=== PATIENT | male | born 1970 | race Caucasian/White ===

== ENCOUNTER 2021-04-07 01:14 | Observation (INO) | payer OTHER ==
[2021-04-07 01:57] LABS: BASOPHILS % (AUTO) 0.2 %; EOSINOPHILS # (AUTO) 0.1 10^3/uL (0.0-0.7); EOSINOPHILS % (AUTO) 0.9 %; HCT - HEMATOCRIT 39.4 % (42.0-52.0); HGB - HEMOGLOBIN 13.7 g/dL (14.0-18.0); LYMPHOCYTES # (AUTO) 0.8 10^3/uL (1.5-3.5); LYMPHOCYTES % (AUTO) 6.4 %; MEAN CORPUSCULAR HEMOGLOBIN 34.3 pg (27.0-31.0); MEAN CORPUSCULAR HGB CONC 34.8 g/dL (32.0-36.0); MEAN CORPUSCULAR VOLUME 98.5 fL (80.0-94.0); MEAN PLATELET VOLUME 11.4 fL (7.4-11.4); MONOCYTES # (AUTO) 1.1 10^3/uL (0.0-1.0); MONOCYTES % (AUTO) 9.5 %; NEUTROPHILS # (AUTO) 9.7 10^3/uL (1.5-6.6); NEUTROPHILS % (AUTO) 82.7 %; PLT - PLATELET COUNT 148 10^3/uL (130-450); RED CELL DISTRIBUTION WIDTH 11.7 % (12.0-15.0); WHITE BLOOD COUNT 11.7 x10^3/uL (4.8-10.8)
--- NOTE | 2021-04-07 02:09 | ED Physician Documentation ---
PD HPI ABD PAIN - Stated complaint Stated Complaint: ABD CRAMPS - Chief complaint Chief Complaint: Abd Pain - History obtained from History obtained from: Patient - History of Present Illness Timing - onset: Enter time (20:00), Today Timing - details: Gradual onset, Waxing and waning Pain level now: 4 Quality: Cramping, Pain Location: All over / everywhere Radiation: Other (does not radiate) Improved by: Laying still Worsened by: Palpation Associated symptoms: No: Fever, Nausea, Vomiting, Diarrhea, Constipation Similar symptoms before: Has not had sx before Recently seen: Not recently seen - Additional information Additional information: c/o abdominal pain, described as cramping, since 8 PM. Gradual onset but steadily progressing in severity. Pain is predominantly right-sided. He denies h/o similar symptoms. Review of Systems Constitutional: denies: Fever, Chills, Sweats Cardiac: reports: Reviewed and negative Respiratory: reports: Reviewed and negative GI: reports: Abdominal Pain. denies: Abdominal Swelling, Nausea, Vomiting, Constipation, Diarrhea : denies: Dysuria, Frequency Skin: denies: Rash PD PAST MEDICAL HISTORY - Past Medical History Past Medical History: Yes Neuro: Multiple sclerosis Musculoskeletal: Other Other Past Medical History: Multiple Sclerosis - Past Surgical History Past Surgical History: Yes - Present Medications Home Medications: Ambulatory Orders Medication Instructions Recorded Confirmed Diroximel Fumarate [Vumerity] 2 cap PO DAILY 04/07/21 04/07/21 - Allergies Allergies/Adverse Reactions: Allergies Allergy/AdvReac Type Severity Reaction Status Date / Time No Known Drug Allergies Allergy Verified 04/07/21 01:44 - Living Situation Living Situation: reports: With spouse/s.o. Living Arrangement: reports: At home - Social History Does the pt smoke?: No Smoking Status: Never smoker Does the pt drink ETOH?: No Does the pt have substance abuse?: No - Immunizations Immunizations are current?: Yes - POLST Patient has POLST: No PD ED PE NORMAL - Vitals Vital signs reviewed: Yes - General General: Alert and oriented X 3, No acute distress, Well developed/nourished - HEENT HEENT: Moist mucous membranes - Neck Neck: Supple, no meningeal sign - Cardiac Cardiac: RRR, No murmur - Respiratory Respiratory: No respiratory distress, Clear bilaterally - Abdomen Abdomen: Soft, Non distended PD ED PE EXPANDED - Abdomen Abdomen: Tender to palpation, RLQ. No: Rebound, Guarding Results - Vitals Vitals: Vital Signs - 24 hr 04/07/21 04/07/21 04/07/21 01:35 03:10 03:37 Temperature 36.9 C 36.5 C 37.1 C Heart Rate 66 70 57 L Respiratory 16 16 16 Rate Blood Pressure 116/66 134/70 H 105/77 O2 Saturation 100 98 98 Oxygen O2 Source Room air - Labs Labs: Laboratory Tests 04/07/21 04/07/21 04/07/21 01:50 01:50 02:35 WBC 11.7 H RBC 4.00 L Hgb 13.7 L Hct 39.4 L MCV 98.5 H MCH 34.3 H MCHC 34.8 RDW 11.7 L Plt Count 148 MPV 11.4 Neut # (Auto) 9.7 H Lymph # (Auto) 0.8 L [facility] # (Auto) 1.1 H Eos # (Auto) 0.1 Baso # (Auto) 0.0 Absolute Nucleated RBC 0.00 Nucleated RBC % 0.0 Sodium 137 Potassium 3.5 Chloride 102 Carbon Dioxide 24 Anion Gap 11.0 BUN 25 H Creatinine 0.8 Estimated GFR (MDRD) 102 Glucose 124 H Calcium 9.4 Total Bilirubin 1.4 H AST 33 ALT 35 Alkaline Phosphatase 48 Total Protein 7.1 Albumin 4.5 Globulin 2.6 Albumin/Globulin Ratio 1.7 Lipase 20 L Urine Color YELLOW Urine Clarity CLEAR Urine pH 5.5 Ur Specific [place] >=1.030 H Urine Protein NEGATIVE Urine Glucose (UA) NEGATIVE Urine Ketones >=80 H Urine Occult Blood NEGATIVE Urine Nitrite NEGATIVE Urine Bilirubin NEGATIVE Urine Urobilinogen 0.2 (NORMAL) Ur Leukocyte Esterase NEGATIVE Ur Microscopic Review NOT INDICATED Urine Culture Comments NOT INDICATED - Rads (name of study) CT A/P with IV contrast Radiology: Prelim report reviewed, See rad report PD MEDICAL DECISION MAKING - ED course Complexity details: reviewed results, re-evaluated patient, considered differential, d/w patient ED course: c/o gradual onset abdominal pain, steadily progressive over past few hours. Exam is consistent with appendicitis this is demonstrated on CT A/P. He declines pain medications during ED stay. D/W Dr. Gavin who will admit for surgical intervention later this morning Departure - Departure Disposition: ED Transfer to [facility] Clinical Impression: Appendicitis Qualifiers: Appendicitis type: acute appendicitis Acute appendicitis type: with localized peritonitis Appendicitis gangrene presence: without gangrene Appendicitis perforation presence: without perforation Appendicitis abscess presence: without abscess Qualified Code(s): K35.30 - Acute appendicitis with localized peritonitis, without perforation or gangrene Condition: Good Discharge Date/Time: 04/07/21 04:45
[2021-04-07 02:12] LABS: ALBUMIN 4.5 g/dL (3.2-5.5); ALBUMIN/GLOBULIN RATIO 1.7 (1.0-2.2); BILIRUBIN,TOTAL 1.4 mg/dL (0.2-1.0); CALCIUM 9.4 mg/dL (8.5-10.3); CREATININE 0.8 mg/dL (0.6-1.2); POTASSIUM 3.5 mmol/L (3.5-5.0); TOTAL PROTEIN 7.1 g/dL (6.7-8.2)
[2021-04-07] MEDS ORDERED: SODIUM CHLORIDE 0.9% 1,000 ML IV STA (02:43)
[2021-04-07 02:46] LABS: BILIRUBIN,URINE NEGATIVE (NEGATIVE); GLUCOSE, URINE (UA) NEGATIVE (NEGATIVE); KETONES,URINE (UA) >=80 mg/dL (NEGATIVE); LEUKOCYTE ESTERASE, URINE NEGATIVE (NEGATIVE); NITRITE,URINE NEGATIVE (NEGATIVE); OCCULT BLOOD,URINE NEGATIVE (NEGATIVE); PH,URINE 5.5 PH (5.0-7.5); PROTEIN,URINE NEGATIVE (NEGATIVE); UROBILINOGEN,URINE 0.2 (NORMAL) E.U./dL (NORMAL)
[2021-04-07 02:53] LABS: CLARITY,URINE CLEAR (CLEAR)
[2021-04-07] MEDS ORDERED: IOVERSOL 320 100 ML VIAL IVP ONE ×2 (02:57→03:31)
[2021-04-07] MEDS ORDERED: HYDROmorphone 0.5 MG/0.5 ML SYRINGE IVP PRN ×3 (04:17→11:03)
[2021-04-07] MEDS ORDERED: ONDANSETRON 4 MG/2 ML VIAL IVP PRN ×3 (04:17→11:03)
[2021-04-07] MEDS ORDERED: ZOLPIDEM 5 MG TABLET PO PRN (04:17)
[2021-04-07] MEDS ORDERED: SODIUM CHLORIDE FLUSH 0.9% 10 ML SYRINGE IVP PRN (04:17)
[2021-04-07] MEDS ORDERED: ACETAMINOPHEN 325 MG TABLET PO PRN (04:17)
[2021-04-07] MEDS ORDERED: ONDANSETRON ODT 4 MG TABLET TL PRN (04:17)
[2021-04-07] MEDS: AMPICILLIN/SULBACTAM 3 GM in SODIUM CHLORIDE 0.9% MINIBAG 100 ML IV SCH ×2 (05:43→12:52)
[2021-04-07] MEDS: LACTATED RINGERS 1,000 ML IV SCH ×2 (05:45→11:42)
[2021-04-07 08:17] LABS: B. PARAPERTUSSIS- RESP PCR PAN NOT DETECTED; B. PERTUSSIS- RESP PCR PANEL NOT DETECTED; C. PNEUMONIAE- RESP PCR PANEL NOT DETECTED; CORONAVIRUS 229E-RESP PCR NOT DETECTED; CORONAVIRUS HKU1-RESP PCR NOT DETECTED; CORONAVIRUS NL63-RESP PCR NOT DETECTED; CORONAVIRUS OC43-RESP PCR NOT DETECTED; HUMAN METAPNEUMOVIRUS NOT DETECTED; INFLUENZA A- RESP PCR PANEL NOT DETECTED; INFLUENZA B - RESP PCR PANEL NOT DETECTED; M. PNEUMONIAE- RESP PCR PANEL NOT DETECTED; PARAINFLUENZA VIRUS 1 NOT DETECTED; PARAINFLUENZA VIRUS 2 NOT DETECTED; PARAINFLUENZA VIRUS 3 NOT DETECTED; PARAINFLUENZA VIRUS 4 NOT DETECTED; RHINOVIRUS/ENTEROVIRUS NOT DETECTED; RSV- RESP PCR PANEL NOT DETECTED; SARS-CoV-2 -RESP PCR PANEL NOT DETECTED
[2021-04-07] MEDS ORDERED: fentaNYL 100 MCG/2 ML VIAL ONE (08:34)
[2021-04-07] MEDS ORDERED: PROPOFOL 200 MG/20 ML VIAL IVP ONE (08:34)
[2021-04-07] MEDS ORDERED: ROCURONIUM 50 MG/5 ML VIAL ONE (08:34)
[2021-04-07] MEDS ORDERED: DEXAMETHASONE 4 MG/ML VIAL ONE (08:34)
[2021-04-07] MEDS ORDERED: KETOROLAC 30 MG/ML VIAL ONE (08:34)
[2021-04-07] MEDS ORDERED: LIDOCAINE-MPF 2% 5 ML VIAL ONE (08:34)
[2021-04-07] MEDS ORDERED: ONDANSETRON 4 MG/2 ML VIAL ONE (08:34)
--- NOTE | 2021-04-07 08:44 | ANESTHESIA ---
Pre-Anesthesia VS, & Labs - Diagnosis Appendecitis - Procedure laparoscopic appendectomy Vital Signs: Temp Pulse Resp BP Pulse Ox 37 C 54 L 16 99/62 100 04/07/21 07:32 04/07/21 07:32 04/07/21 07:32 04/07/21 07:32 04/07/21 07:32 Height: 5 ft 7 in Weight (kg): 59.5 kg Body Mass Index: 20.5 BMI Classification: Healthy weight - NPO >8 hours - Lab Results Current Lab Results: Laboratory Tests 04/07/21 01:50: Sodium 137, Potassium 3.5, Chloride 102, Carbon Dioxide 24, Anion Gap 11.0, BUN 25 H, Creatinine 0.8, Estimated GFR (MDRD) 102, Glucose 124 H, Calcium 9.4, Total Bilirubin 1.4 H, AST 33, ALT 35, Alkaline Phosphatase 48, Total Protein 7.1, Albumin 4.5, Globulin 2.6, Albumin/Globulin Ratio 1.7, Lipase 20 L 04/07/21 01:50: WBC 11.7 H, RBC 4.00 L, Hgb 13.7 L, Hct 39.4 L, MCV 98.5 H, MCH 34.3 H, MCHC 34.8, RDW 11.7 L, Plt Count 148, MPV 11.4, Neut # (Auto) 9.7 H, Lymph # (Auto) 0.8 L, [place] # (Auto) 1.1 H, Eos # (Auto) 0.1, Baso # (Auto) 0.0, Absolute Nucleated RBC 0.00, Nucleated RBC % 0.0 Lab results reviewed: Yes Fish Bones: 04/07/21 01:50 04/07/21 01:50 Home Medications and Allergies Home Medications: Ambulatory Orders Diroximel Fumarate [Vumerity] 2 cap PO DAILY 04/07/21 Active Medications Acetaminophen (Acetaminophen 325 Mg Tablet) 650 mg PO Q4HR PRN PRN Reason: Pain 1 to 4 Hydromorphone HCl (Hydromorphone 0.5 Mg/0.5 Ml Syringe) 0.5 mg IVP Q2H PRN PRN Reason: Pain 8 to 10 Lactated Ringer's (Lr) 1,000 mls @ 125 mls/hr IV .Q8H [facility] Last Infusion: 04/07/21 06:15 Dose: 125 mls/hr Documented by: Ampicillin Sodium/Sulbactam (Sodium 3 gm/ Sodium Chloride) 100 mls @ 200 mls/hr IV Q6HR [facility] Last Infusion: 04/07/21 07:03 Dose: Infused Documented by: Ondansetron HCl (Ondansetron Odt 4 Mg Tablet) 4 mg TL Q6HR PRN PRN Reason: Nausea / Vomiting Ondansetron HCl (Ondansetron 4 Mg/2 Ml Vial) 4 mg IVP Q6HR PRN PRN Reason: Nausea / Vomiting Sodium Chloride (Sodium Chloride Flush 0.9% 10 Ml Syringe) 10 ml IVP PRN PRN PRN Reason: NEEDED PER PROVIDER ORDERS Sodium Chloride (Sodium Chloride Flush 0.9% 10 Ml Syringe) 10 ml IVP 0100,0900,1700 [facility] Zolpidem Tartrate (Zolpidem 5 Mg Tablet) 5 mg PO QPM PRN PRN Reason: Insomnia Diroximel Fumarate [Vumerity] 2 cap PO DAILY 04/07/21 Allergies/Adverse Reactions: Allergies Allergy/AdvReac Type Severity Reaction Status Date / Time No Known Drug Allergies Allergy Verified 04/07/21 01:44 Anes History & Medical History - Anesthetic History Anesthesia Complications: reports: No previous complications Family history of Anesthesia Complications: Denies Family history of Malignant Hyperthermia: Denies - Medical History Cardiovascular: reports: None Pulmonary: reports: None Gastrointestinal: reports: None Urinary: reports: None Neuro: reports: Multiple sclerosis Musculoskeletal: reports: Other Endocrine/Autoimmune: reports: None Blood Disorders: reports: None Skin: reports: None Smoking Status: Never smoker Psychosocial: reports: No issues indicated History of Cancer?: No Other Past Medical History: Multiple Sclerosis - Surgical History Urologic: reports: Bladder surgery Exam General: Alert, Oriented x3, Cooperative, No acute distress Dental: WNL Mouth Openin Fingerbreadth Neck Mobility: Normal Mallampati classification: I Respiratory: Lungs clear, Normal breath sounds, No respiratory distress, No accessory muscle use Cardiovascular: Regular rate, Normal S1, Normal S2, No murmurs Plan Anesthesia Type: General Consent for Procedure(s) Verified and Reviewed: Yes Code Status: Attempt Resuscitation ASA classification: 2-Mild systemic disease Is this case an emergency?: No
--- NOTE | 2021-04-07 08:52 | CT Report ---
PROCEDURE: Abdomen/Pelvis W INDICATIONS: abd. pain CONTRAST: IV CONTRAST: Optiray 320 ml: 100 PO CONTRAST: *NO PO CONTRAST TECHNIQUE: After the administration of nonionic contrast, 5 mm thick sections acquired from the diaphragms to th e symphysis. 5 mm thick coronal and sagittal reformats were acquired. For radiation dose reduction, the following was used: automated exposure control, adjustment of mA and/or kV according to patient size. COMPARISON: None. FINDINGS: Image quality: Excellent. ABDOMEN: Lung bases: Lung bases are clear. Heart size is normal. Solid organs: Liver and spleen are normal in size and enhancement. Gallbladder appears normal Bili eagle system is non dilated. Pancreas enhances normally. No adrenal nodules. Kidneys demonstrate nor mal size and enhancement, without hydronephrosis. Peritoneum and bowel: Bowel loops demonstrate normal wall thickness and caliber. There is moderate colonic obstipation. No free fluid or air. Nodes and vessels: No retroperitoneal or mesenteric adenopathy by size criteria. Aorta and inferior vena cava are normal in size. Miscellaneous: No ventral hernias. PELVIS: Genitourinary: Bladder wall thickness is normal. Miscellaneous: No inguinal hernias or adenopathy. Acute appendicitis is noted at the right lower qu adrant, as indicated by abnormal thickening and hyperemia involving the appendix which is retrocecal, and directed cephalad along the right paracolic gutter area. No evidence of periappendiceal abscess. No appendicolith is seen. Bones: No suspicious bony lesions. No vertebral body compression fractures. IMPRESSION: Acute appendicitis right lower quadrant. Findings immediately conveyed to the emergency room physician caring for the patient. No evidence of periappendiceal abscess formation or rupture. S urgical consultation is anticipated. Reviewed by: Chaparro Fleming MD on 04/07/2021 7:51 AM RALPH Approved by: Chaparro Fleming MD on 04/07/2021 7:51 AM [place] Station ID: [id number]
[2021-04-07] MEDS ORDERED: SODIUM CHLORIDE FLUSH 0.9% 10 ML SYRINGE IVP SCH (09:00)
[2021-04-07] MEDS ORDERED: BUPIVACAINE 0.5%-EPI 1:200000 PF 30 ML VIAL ONE (09:07)
--- NOTE | 2021-04-07 09:37 | HISTORY & PHYSICAL EXAMINATION ---
Chief Complaint - Chief Complaint Chief Complaint: cramping abdominal pain History of Present Illness - Admitted From Admitted From:: ED - History Obtained From Records Reviewed: yes History obtained from: pt Exam Limitations: none - History of Present Illness HPI Comment/Other: 1 day of cramping abdominal pain, mostly right lower abdomen. Seen and evaluated in the ED. Ct retrocecal appendicitis. History - Past Medical History Cardiovascular: reports: None Respiratory: reports: None Neuro: reports: Multiple sclerosis Endocrine/Autoimmune: reports: None GI: reports: None : reports: None Musculoskeletal: reports: Other Derm: reports: None MRSA Hx?: No Other Past Medical History: Multiple Sclerosis - Family & Social History Living arrangement: At home Living Situation: With spouse/s.o. - POLST Patient has POLST: No Meds/Allgy - Home Medications Home Medications: Ambulatory Orders Medication Instructions Recorded Confirmed Diroximel Fumarate [Vumerity] 2 cap PO DAILY 04/07/21 04/07/21 - Allergies Allergies/Adverse Reactions: Allergies Allergy/AdvReac Type Severity Reaction Status Date / Time No Known Drug Allergies Allergy Verified 04/07/21 01:44 Review of Systems - Other Findings Other Findings: 10 pt ros as above otherwise unremarkable Exam - Vital Signs Reviewed Vital Signs: Yes Vital Signs: Vital Signs x48h Temp Pulse Pulse Resp BP BP Pulse Ox 04/07/21 07:32 37 C 54 L 16 99/62 100 04/07/21 04:58 36.6 C 55 L 16 113/79 100 04/07/21 04:35 36.9 C 65 18 109/73 99 04/07/21 03:37 37.1 C 57 L 16 105/77 98 04/07/21 03:10 36.5 C 70 16 134/70 H 98 - Physical Exam General Appearance: positive: No acute distress, Alert Eyes Bilateral: positive: PERRL, EOMI ENT: positive: No signs of dehydration Neck: positive: No JVD Respiratory: positive: No respiratory distress, Breath sounds nml Cardiovascular: positive: Regular rate & rhythm Abdomen: positive: No distention, Other Neurologic/Psychiatric: positive: Oriented x3 Conclusion/Plan - Problem List (1) Appendicitis Conclusion/Plan: plan appendectomy. parq held and consent obtained Qualifiers: Appendicitis type: acute appendicitis Acute appendicitis type: with localized peritonitis Appendicitis gangrene presence: without gangrene Appendicitis perforation presence: without perforation Appendicitis abscess presence: without abscess Qualified Code(s): K35.30 - Acute appendicitis with localized peritonitis, without perforation or gangrene - Lab Results Lab results reviewed: Yes Fish Bones: 04/07/21 01:50 04/07/21 01:50 - Diagnostic Imaging Results Diagnostic Imaging Results: positive: Read independently
[2021-04-07] MEDS ORDERED: BUPIVACAINE 0.5%-EPI 1:200000 PF 30 ML VIAL SUBQ ONE (10:12)
[2021-04-07] MEDS ORDERED: LACTATED RINGERS 1,000 ML IV ONE (10:51)
[2021-04-07] MEDS ORDERED: HYDROcod/ACETAM 5/325 MG TABLET PO PRN (10:53)
--- NOTE | 2021-04-07 10:58 | ANESTHESIA POST OP EVALUATION ---
Anesthesia Post Eval - Post Anesthesia Eval Vitals: Last Vital Signs Temp 37.6 C 04/07/21 10:55 Pulse 73 04/07/21 10:55 Resp 13 04/07/21 10:55 BP 110/62 04/07/21 10:55 Pulse Ox 100 04/07/21 10:55 CV Function Including HR & BP: Stable Pain Control: Satisfactory Nausea & Vomiting: Negative Mental Status: Baseline Respiratory Status: Airway Patent Hydration Status: Satisfactory Anesthesia Complications: None
[2021-04-07] MEDS ORDERED: ePHEDrine 50 MG/ML VIAL IVP PRN (11:03)
[2021-04-07] MEDS ORDERED: fentaNYL 100 MCG/2 ML VIAL IVP PRN (11:03)
[2021-04-07] MEDS ORDERED: METOCLOPRAMIDE 10 MG/2 ML VIAL IVP PRN (11:03)
[2021-04-07] MEDS ORDERED: MORPHINE 2 MG/ML CARPUJECT IVP PRN (11:03)
[2021-04-07] MEDS ORDERED: NALOXONE 0.4 MG/ML VIAL IVP PRN (11:03)
[2021-04-07] MEDS ORDERED: ATROPINE ABBOJECT 1 MG/10 ML SYRINGE IVP PRN (11:03)
--- NOTE | 2021-04-07 11:26 | OPERATIVE REPORT ---
Operative Report - General Admit Date: 04/07/21 Planned Procedure: laparoscopic appendectomy Pre-Op Diagnosis: appendicitis Procedure Performed: laparoscopic appendectomy Post Op Diagnosis: appendicitis - Procedure Note Primary Surgeon: mauricio jacinto Anesthesia Technique: General ET tube, Local Pathology: appendix Estimated Blood Loss (mL): 5 Drain/Tube Type: Other (none) Findings: appendicitis Complications: none - Other Other Information/Narrative: The patient was properly identified brought to the operating room and placed in supine position. The patient was previously given antibiotics. Sequential compression devices were placed. General endotracheal anesthesia was induced. The patient was prepped and draped in a sterile fashion. Local anesthetic was given to incision areas. An infraumbilical incision was made in and proceeded down to the fascia. The fascia was incised lifted upwards and abdomen entered with a Veress needle. CO2 was insufflated to a pressure of 15. A 12 mm trocar was placed with 30 degree scope. There was no evidence of injury from Veress needle or trocar placement. Under direct vision a 5 mm trocar was placed suprapubic and a 5 mm trocar was placed in the right upper quadrant. Appendix was identified and retracted anteriorly. Peritoneal attachments were taken down with careful use of cautery. Appendix was mobilized more anterior. A plane was then created between the mesoappendix and the appendix at the cecum. Appendix was divided with an Endo [place] intestinal load to include up a small portion of the cecum. The mesoappendix was then divided with an Endo [place] vascular load. There was secure closure at the cecum and hemostasis was assured. The appendix was not brought out. The abdomen was thoroughly irrigated and hemostasis again assured. Trochars were removed under direct vision. Fascia at the infraumbilical site was closed with a running 0 Vicryl suture. Subcutaneous tissue was irrigated and skin reapproximated with buried interrupted 4-0 Monocryl. Dressings were applied. The patient tolerated the procedure well was awakened and brought to recovery in good condition.
[2021-04-07] MEDS ORDERED: LACTATED RINGERS 1,000 ML IV SCH (12:00)
[2021-04-07] MEDS ORDERED: SUGAMMADEX 200 MG/2 ML VIAL IVP ONE (12:12)
[2021-04-07 14:47] VITALS: BP 105/68
--- NOTE | 2021-05-23 08:27 | PROVIDER PROGRESS NOTE ---
Subjective - General Admit Date: 04/07/21 Procedure Date: 04/07/21 (late entry) Post Op Days: 46 Procedure Performed: appendectomy - Review of Systems Wound/Incisions: positive: Dressing dry and intact General: positive: No symptoms Pulmonary: positive: No symptoms Cardiovascular: positive: No symptoms Gastrointestinal: positive: No symptoms Objective - Lab Results Lab Results: 04/07/21 01:50 04/07/21 01:50
--- NOTE | 2021-05-23 08:28 | Discharge Plan ---
Discharge Plan Problem Reviewed?: Yes Disposition: Home, Self Care Prescriptions: HYDROcod/ACETAM 5/325 [[place] 5/325] 1 each PO Q6H PRN #20 tablet PRN Reason: Pain HYDROcod/ACETAM 5/325 [[place] 5/325] 1 each PO Q6H PRN #20 tablet PRN Reason: Pain Diet: Regular Activity Restrictions: No Restrictions Shower Restrictions: No Driving Restrictions: No Instruction Topics: Acetaminophen Hydrocodone tablets or capsules, Appendx Surg No Smoking: If you smoke, Please STOP! Call for help. Follow-up with: Mart Hamlin MD [Primary Care Provider] -
== END 2021-04-07 15:05 | disposition home or self-care (01) ==
LOC: ED 01:14 → MS2 04:17
PROVIDERS: ADMIT Surgery; ATTEND Surgery
PROC: 0DTJ4ZZ Resection of Appendix, Percutaneous Endoscopic Approach (ICD-10-PCS; principal; 2021-04-07 10:00)
DX: K35.30 Acute appendicitis with localized peritonitis, without perforation or gangrene (principal)
CPT/HCPCS: 0202U; 36415; 44970; 74177; 80053; 81003; 83690; 85025; 88304; 96365; 99284; 99285; A9270; G0378; J7120; Q9967; 81001; 87086